=== PATIENT | female | born 2000 | race Caucasian/White ===

== ENCOUNTER 2022-08-04 13:06 | Inpatient (IN) | payer BC, OTHER ==
[~2022-08-04 13:06] MED LIST: Iopamidol 370 76% 100 ML VIAL ONE
[2022-08-04] MEDS ORDERED: Ketorolac Tromethamine 30 MG/ML VIAL ONE (13:41)
[2022-08-04 13:55] LABS: Troponin I 0.011 ng/mL (< 0.028)
[2022-08-04 14:31] LABS: SARS-CoV-2 NAA Rapid Test Not Detected (NotDetected)
[2022-08-04] MEDS ORDERED: Morphine 4 MG/ML VIAL ONE (14:43)
[2022-08-04] MEDS ORDERED: Acetaminophen 325 MG TAB PO PRN (15:29)
[2022-08-04] MEDS ORDERED: Ondansetron ODT 4 MG TAB PO PRN (15:29)
[2022-08-04] MEDS ORDERED: Ondansetron PF 4 MG/2 ML Vial IVP PRN (15:29)
[2022-08-04 16:51] VITALS: BMI 41.3
[2022-08-04 17:28] LABS: Lactic Acid 7.4 mmol/L (0.5-2.2)
[2022-08-04] MEDS: methylPREDNISolone Sod Succ 40 MG VIAL IVP SCH (21:57)
[2022-08-05 05:15] LABS: Hemoglobin 13.2 g/dL (12.0-15.5); Mean Corpuscular HGB CONC 32.7 g/dL (32.0-36.0); Mean Corpuscular Hemoglobin 29.7 pg (27.0-33.0); Mean Platelet Volume 11.6 fl (7.4-10.4); Platelet Count 215 10x3/uL (150-450); RBC Distribution Width 13.1 % (11.5-14.5); Red Blood Cell (RBC) Count 4.44 10x6/uL (3.90-5.03); White Blood Cell (WBC) Count 23.1 10x3/uL (3.5-10.5)
[2022-08-05 05:22] LABS: Lactic Acid 0.8 mmol/L (0.5-2.2)
[2022-08-05 05:29] LABS: Anion Gap 14 mmol/L (10-20); BUN (Urea Nitrogen) 7 mg/dL (7.0-18.7); Calc. Creatinine Clearance 205 mL/min (70-130); Calcium 9.3 mg/dL (7.8-10.44); Carbon Dioxide 18 mmol/L (22-29); Chloride 112 mmol/L (98-107); Estimated GFR 127; Glucose 135 mg/dL (70-105); Potassium 4.7 mmol/L (3.5-5.1); Sodium 139 mmol/L (136-145)
[2022-08-05 05:30] LABS: MDiff Complete? YES
[2022-08-05 05:45] LABS: Band 11 % (5-11); Lymphocytes 3 % (21-51); Monocytes 3 % (0-10); Neutrophil 83 % (42-75)
[2022-08-05 05:47] LABS: Large Platelets SLIGHT; Platelet Clumps SLIGHT; Platelet Morphology Comment Appears Adequate; RBC Morphology Normal
[2022-08-05] MEDS: methylPREDNISolone Sod Succ 40 MG VIAL IVP SCH ×3 (05:55→21:39)
[2022-08-05] MEDS ORDERED: Guaifenesin DM 100-10/5 ML UDCUP ONE ×2 (08:55→21:31)
[2022-08-05] MEDS: Guaifenesin DM 100-10/5 ML UDCUP PO PRN ×2 (09:09→21:42)
[2022-08-05] MEDS ORDERED: Ipratropium/Albuterol 3 ML NEB NEB PRN (10:56)
[2022-08-05] MEDS: Budesonide 0.25 MG/2 ML NEB INH SCH (19:31)
[2022-08-05] MEDS: Montelukast Sodium 10 mg Tablet PO SCH (21:40)
[2022-08-06] MEDS: methylPREDNISolone Sod Succ 40 MG VIAL IVP SCH ×3 (06:11→21:19)
[2022-08-06] MEDS: Budesonide 0.25 MG/2 ML NEB INH SCH ×2 (06:30→19:08)
[2022-08-06 13:25] LABS: Magnesium 1.8 mg/dL (1.6-2.6)
[2022-08-06] MEDS: Guaifenesin DM 100-10/5 ML UDCUP PO PRN ×2 (14:37→19:22)
[2022-08-06] MEDS ORDERED: Sodium Chloride 0.9% 250 ML 250 ML ONE (15:28)
[2022-08-06] MEDS: Azithromycin 500 MG in Sodium Chloride 0.9% 250 ML 250 ML IVPB SCH (15:47)
[2022-08-06] MEDS: Benzonatate 100 MG CAP PO SCH ×2 (15:47→21:19)
[2022-08-06] MEDS ORDERED: cefTRIAXone\\ROCEPHIN 2 GM in Sodium Chloride 0.9% 100 ML IVPB SCH (16:00)
[2022-08-06 17:07] LABS: Legionella Urinary Ag Negative (Negative); Strep pneumo Urine Ag NEGATIVE (NEGATIVE)
[2022-08-06] MEDS: Montelukast Sodium 10 mg Tablet PO SCH (21:20)
[2022-08-07] MEDS: Guaifenesin DM 100-10/5 ML UDCUP PO PRN ×2 (05:08→20:24)
[2022-08-07] MEDS: methylPREDNISolone Sod Succ 40 MG VIAL IVP SCH (05:08)
[2022-08-07 05:11] LABS: Mononucleosis NEGATIVE (NEGATIVE)
[2022-08-07 05:12] LABS: MONO NEGATIVE CONTROL ZONE White (Negative) (White); MONO POSITIVE CONTROL Pink Line (Positive) (PINK/RED)
[2022-08-07 05:16] LABS: #Basophils 0.2 10x3/uL (0.0-0.2); #Eosinphils 0.1 10x3/uL (0.0-0.5); #Monocytes 0.7 10x3/uL (0.0-1.1); #Neutrophils 14.4 10x3/uL (1.5-8.4); %Basophils 0.9 % (0.0-2.0); %Eosinophils 0.5 % (0.0-6.0); %Lymphocytes 9.7 % (18.0-47.0); %Monocytes 3.6 % (0.0-10.0); %Neutrophils 80.6 % (40.0-75.0); Hemoglobin 13.8 g/dL (12.0-15.5); Mean Corpuscular HGB CONC 32.9 g/dL (32.0-36.0); Mean Corpuscular Hemoglobin 30.2 pg (27.0-33.0); Mean Corpuscular Volume 91.9 fl (81.6-98.3); Mean Platelet Volume 11.1 fl (7.4-10.4); Platelet Count 318 10x3/uL (150-450); RBC Distribution Width 13.1 % (11.5-14.5); Red Blood Cell (RBC) Count 4.57 10x6/uL (3.90-5.03); White Blood Cell (WBC) Count 17.9 10x3/uL (3.5-10.5)
[2022-08-07 05:28] LABS: Anion Gap 16 mmol/L (10-20); BUN (Urea Nitrogen) 17 mg/dL (7.0-18.7); Calc. Creatinine Clearance 196 mL/min (70-130); Calcium 9.4 mg/dL (7.8-10.44); Carbon Dioxide 21 mmol/L (22-29); Chloride 107 mmol/L (98-107); Estimated GFR 124; Glucose 138 mg/dL (70-105); Magnesium 1.9 mg/dL (1.6-2.6); Potassium 3.7 mmol/L (3.5-5.1); Sodium 140 mmol/L (136-145)
[2022-08-07] MEDS: Budesonide 0.25 MG/2 ML NEB INH SCH ×2 (07:00→19:06)
[2022-08-07] MEDS: Benzonatate 100 MG CAP PO SCH ×3 (08:28→20:24)
[2022-08-07] MEDS ORDERED: Azithromycin 250 MG TAB PO SCH (16:00)
[2022-08-07] MEDS: Azithromycin 500 MG in Sodium Chloride 0.9% 250 ML 250 ML IVPB SCH (16:33)
[2022-08-07] MEDS: Montelukast Sodium 10 mg Tablet PO SCH (20:25)
[2022-08-07] MEDS: Cefdinir 300 MG CAP PO SCH (20:25)
[2022-08-08 04:29] LABS: Actual Bicarbonate (HCO3v) 23 mEq/L (22-28); Base Excess -0.6 mEq/L (-2 - +2); Calcium, Ionized (venous) 1.08 mmol/L (1.16-1.32); Chloride (VBG) 104 mmol/L (98-106); Hemoglobin (Hb) 14.6 g/dL (11.7-15.5); Potassium (VBG) 3.25 mmol/L (3.70-5.30); Puncture Site Other Site; RapidComm Collect By CBN; pH (venous) 7.44 (7.32-7.43)
[2022-08-08 04:33] LABS: Hemoglobin 13.4 g/dL (12.0-15.5); MDiff Complete? YES; Mean Corpuscular HGB CONC 33.4 g/dL (32.0-36.0); Mean Corpuscular Hemoglobin 30.4 pg (27.0-33.0); Mean Corpuscular Volume 90.9 fl (81.6-98.3); Mean Platelet Volume 10.6 fl (7.4-10.4); Platelet Count 299 10x3/uL (150-450); Red Blood Cell (RBC) Count 4.41 10x6/uL (3.90-5.03); White Blood Cell (WBC) Count 18.5 10x3/uL (3.5-10.5)
[2022-08-08 04:45] LABS: Anion Gap 15 mmol/L (10-20); BUN (Urea Nitrogen) 18 mg/dL (7.0-18.7); Calc. Creatinine Clearance 186 mL/min (70-130); Calcium 8.4 mg/dL (7.8-10.44); Carbon Dioxide 21 mmol/L (22-29); Chloride 107 mmol/L (98-107); Estimated GFR 116; Glucose 96 mg/dL (70-105); Magnesium 1.8 mg/dL (1.6-2.6); Potassium 3.2 mmol/L (3.5-5.1); Sodium 140 mmol/L (136-145)
[2022-08-08 05:58] LABS: Lymphocytes 32 % (21-51); Monocytes 16 % (0-10); Neutrophil 52 % (42-75)
[2022-08-08 05:59] LABS: Diff Comment (RBC Morph SCRN) NORMAL; Platelet Morphology Comment Appears Adequate
[2022-08-08] MEDS: Budesonide 0.25 MG/2 ML NEB INH SCH (07:51)
[2022-08-08] MEDS ORDERED: predniSONE 20 MG TAB PO SCH (08:00)
[2022-08-08] MEDS: Cefdinir 300 MG CAP PO SCH (08:28)
[2022-08-08] MEDS: Benzonatate 100 MG CAP PO SCH (08:28)
[2022-08-08 09:25] VITALS: BP 132/63; TEMP 97.5
[2022-08-08] MEDS ORDERED: Magnesium 2 GM/50 ML(in water) 2 GM in Premix Bag 1 BAG IVPB SCH (10:30)
[2022-08-08] MEDS ORDERED: Potassium Chloride 20 MEQ TAB PO SCH (10:30)
[2022-08-11 18:13] LABS: QuantiFERON-TB Gold Plus Negative (Negative)
[2022-08-11 23:38] LABS: Mycoplasma pneumoniae IgG AB Less than 100 U/mL (0-99); Mycoplasma pneumoniae IgM AB Less than 770 U/mL (0-769)
== END 2022-08-08 10:40 | disposition home or self-care (01) | DRG 202 ==
LOC: CSHERS 13:06 → CSHTELE 16:20
PROVIDERS: ADMIT Internal Medicine; ATTEND Family Medicine
DX: J45.901 Unspecified asthma with (acute) exacerbation (principal); J12.89 Other viral pneumonia; E87.20 Acidosis, unspecified; Z68.41 Body mass index [BMI] 40.0-44.9, adult; Z20.822 Contact with and (suspected) exposure to COVID-19; R09.02 Hypoxemia; E66.01 Morbid (severe) obesity due to excess calories; R91.1 Solitary pulmonary nodule; R50.9 Fever, unspecified; R00.0 Tachycardia, unspecified
CPT/HCPCS: 36415; 71275; 80048; 82805; 83036; 83605; 83735; 84443; 85025; 86308; 86480; 86635; 87070; 87081; 87205; 87385; 87430; 87449; 87633; 87899; 93005; 94640; 94760; 94762; 96361; 96374; 96375; J0456; J0696; J1885; J2270; J2920; J3490; J7050; J7512; J7611; J7626; Q9967